=== PATIENT | female | born 1990 | race Hispanic/Latino ===

== ENCOUNTER 2023-10-13 17:10 | Day surgery (SDC) | payer OTHER ==
[2023-10-13 17:58] VITALS: BMI 23.8
[2023-10-13] MEDS ORDERED: hydrALAZINE 20 MG/ML VIAL SLOW IVP PRN (18:27)
[2023-10-13 19:39] LABS: Bilirubin Neg (Negative); Blood, Urine Negative (Negative); Clarity Clear (Clear); Glucose, Urine (Dipstick) Normal (Negative); Ketone, Urine Negative (Negative); Leukocyte Negative (Negative); Nitrite Negative (Negative); Protein, Urine (Dipstick) Negative (Neg-Trace); Specific Gravity, Urine 1.015 (1.005-1.030); Urobilinogen Normal mg/dL (Less than 2)
[2023-10-13 19:46] LABS: Bacteria/HPF Rare-Few HPF (None Seen); CAUTI Indications for Culture Pregnancy; RBC/HPF None Seen HPF (0-3); Squamous Epithelial 0-3 HPF (0-3); WBC/HPF None Seen HPF (0-3)
[2023-10-13 19:47] LABS: Urine Culture Reflex Yes Yes
[2023-10-13] MEDS: Acetaminophen 500 MG TAB PO SCH (19:54)
== END 2023-10-13 20:00 | disposition home or self-care (01) ==
LOC: CSHLD/OP 17:10
PROVIDERS: ATTEND Family Medicine
DX: O26.892 Other specified pregnancy related conditions, second trimester (principal); R10.2 Pelvic and perineal pain; Z3A.21 21 weeks gestation of pregnancy
CPT/HCPCS: 81001; 87086; 99283

== ENCOUNTER 2024-02-14 18:00 | Inpatient (IN) | payer MEDICAID, OTHER ==
[~2024-02-14 18:00] MED LIST: Carboprost 250 MCG/ML AMP IM PRN; Lidocaine 1% (PF) 30 ML VIAL SC PRN; Methylergonovine 0.2 MG/ML VIAL IM PRN; Misoprostol 200 MCG TAB PR PRN; Ondansetron PF 4 MG/2 ML Vial IVP PRN; Oxytocin 30 units/NS 500 ML 500 ML IV SCH; Promethazine HCl 25 MG/ML VIAL IM PRN; Tranexamic Acid 1,000 MG/10 ML VIAL IVP PRN; hydrALAZINE 20 MG/ML VIAL SLOW IVP PRN
[2024-02-14] MEDS ORDERED: Bupivacaine/Epinephrine 0.25% 30 ML VIAL ONE (19:00)
[2024-02-14] MEDS: Lactated Ringer's 1,000 ML IV SCH (19:05)
[2024-02-14 19:27] VITALS: BMI 28.3
[2024-02-14 19:36] LABS: Hematocrit 39.3 % (34.9-44.5); Hemoglobin 12.6 g/dL (12.0-15.5); Mean Corpuscular HGB CONC 32.1 g/dL (32.0-36.0); Mean Corpuscular Hemoglobin 30.7 pg (27.0-33.0); Mean Corpuscular Volume 95.9 fL (81.6-98.3); Mean Platelet Volume 9.6 fL (7.4-10.4); Platelet Count 222 10x3/uL (150-450); RBC Distribution Width 14.2 % (11.5-14.5); White Blood Cell (WBC) Count 6.8 10x3/uL (3.5-10.5)
[2024-02-14 20:42] LABS: Syphilis Antibody Nonreactive (Nonreactive); Syphilis Antibody Index 0.05 S/CO (<1.00 Non-Reactive)
[2024-02-14 20:44] LABS: Hep B Surf Ag - L&D Non-Reactive S/CO (NonReactive)
[2024-02-14] MEDS: Misoprostol 100 MCG TAB VAG SCH (21:17)
[2024-02-15] MEDS: fentaNYL 50 mcg/mL 1 mL Vial SLOW IVP SCH (04:12)
[2024-02-15] MEDS: fentaNYL/Ropivacaine Epidural 100 ML ONE (05:51)
[2024-02-15] MEDS ORDERED: diphenhydrAMINE 50 MG/ML VIAL IVP PRN (05:57)
[2024-02-15] MEDS ORDERED: Promethazine HCl 25 MG/ML VIAL IM PRN (05:57)
[2024-02-15] MEDS ORDERED: Lactated Ringer's 500 ML IV PRN (05:57)
[2024-02-15] MEDS ORDERED: Ondansetron PF 4 MG/2 ML Vial IVP PRN (05:57)
[2024-02-15] MEDS ORDERED: Moisturizing Cream (Eucerin) 113 GM JAR TOP PRN (05:57)
[2024-02-15] MEDS ORDERED: ePHEDrine Sulfate 50 MG/10 ML VIAL SLOW IVP PRN (05:57)
[2024-02-15] MEDS ORDERED: Naloxone HCl 0.4 mg/ml Vial IVP PRN ×2 (05:57)
[2024-02-15] MEDS ORDERED: fentaNYL 2 mcg/Ropivacaine 0.2% Epidural 100 ML CADD EPIDURAL SCH (06:00)
[2024-02-15] MEDS ORDERED: Communication Order-Pharmacy FS SCH (06:00)
[2024-02-15] MEDS: Oxytocin 30 units/NS 500 ML 500 ML IV SCH (07:45)
[2024-02-15] MEDS ORDERED: Benzocaine-Menthol 82.5 ML CAN TOP PRN (07:58)
[2024-02-15] MEDS ORDERED: diphenhydrAMINE 25 MG CAP PO PRN (07:58)
[2024-02-15] MEDS ORDERED: Milk Of Magnesia 30 ML UDCUP PO PRN (07:58)
[2024-02-15] MEDS ORDERED: hydrALAZINE 20 MG/ML VIAL SLOW IVP PRN (07:58)
[2024-02-15] MEDS ORDERED: Bisacodyl 10 MG SUPP PR PRN (07:58)
[2024-02-15] MEDS ORDERED: Lanolin Ointment 7 GM TUBE TOP PRN (07:58)
[2024-02-15] MEDS: Ferrous Sulfate 325 MG TAB PO SCH ×2 (11:20→17:00)
[2024-02-15] MEDS: Prenatal Vitamin 1 TAB PO SCH (12:58)
[2024-02-15] MEDS: Docusate 100 MG CAP PO SCH (12:58)
[2024-02-15] MEDS: Ibuprofen 800 MG TAB PO SCH (14:56)
[2024-02-15] MEDS: Hepatitis B Vaccine 10 MCG/0.5 ML SYR ONE (20:01)
[2024-02-15] MEDS: Phytonadione Neonatal 1 MG/0.5 ML AMP ONE (20:01)
[2024-02-15] MEDS: Erythromycin Base 0.5% Oint 1 GM TUBE ONE (20:01)
[2024-02-15] MEDS: Acetaminophen 325 MG TAB PO PRN (23:20)
[2024-02-16 04:20] LABS: Hematocrit 33.6 % (34.9-44.5); Hemoglobin 11.2 g/dL (12.0-15.5)
[2024-02-16 07:49] VITALS: BP 90/50; TEMP 98.2
== END 2024-02-16 13:58 | disposition home or self-care (01) | DRG 807 ==
LOC: CSHLD 18:13 → CSHPED 02-15 10:25
PROVIDERS: ADMIT Family Medicine; ATTEND Family Medicine
PROC: 3E0P7VZ Introduction of Hormone into Female Reproductive, Via Natural or Artificial Opening (ICD-10-PCS; 2024-02-14)
PROC: 10E0XZZ Delivery of Products of Conception, External Approach (ICD-10-PCS; principal; 2024-02-15)
DX: O70.0 First degree perineal laceration during delivery (principal); Z37.0 Single live birth; Z3A.39 39 weeks gestation of pregnancy
CPT/HCPCS: 36415; 51702; 85014; 85018; 85027; 86780; 86850; 86900; 86901; 87340; J2590; J3010; J7120